=== PATIENT | female | born 1995 | race Caucasian/White ===

== ENCOUNTER 2018-05-24 19:26 | Emergency (ER) | payer OTHER ==
[2018-05-24 19:35] VITALS: BP 120/75
[2018-05-24] MEDS ORDERED: IBUPROFEN 600 MG TAB PO ONE (19:45)
[2018-05-24] MEDS ORDERED: LET GEL TOPICAL 1 EA SYR TP ONE (19:45)
[2018-05-24] MEDS ORDERED: ACETAMINOPHEN 500 MG TAB PO ONE (19:46)
[2018-05-24] MEDS ORDERED: AMOXICILLIN/CLAVULANATE POT 875/125 MG TAB PO ONE (19:48)
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
== END 2018-05-24 20:05 | disposition home or self-care (01) ==
LOC: CED 19:26
DX: S51.851A Open bite of right forearm, initial encounter (principal); F17.200 Nicotine dependence, unspecified, uncomplicated; W50.3XXA Accidental bite by another person, initial encounter; Y92.69 Other specified industrial and construction area as the place of occurrence of the external cause; Y99.0 Civilian activity done for income or pay; Y93.89 Activity, other specified